=== PATIENT | male | born 1940 | race Asian ===

== ENCOUNTER 2018-12-19 01:13 | Emergency (ER) | payer OTHER, MEDICAID ==
[~2018-12-19] VITALS: Ht 157.5 cm; Wt 68.0 kg
[2018-12-19 01:15] VITALS: BP 0/0; Ht 157.5 cm; Wt 68.0 kg
== END 2018-12-19 06:00 | disposition expired ==
LOC: ED 01:13
DX: I46.9 Cardiac arrest, cause unspecified (principal); I10 Essential (primary) hypertension; E11.9 Type 2 diabetes mellitus without complications
CPT/HCPCS: J7030